=== PATIENT | female | born 1975 | race Native Hawaiian/Other Pacific Islander ===

== ENCOUNTER 2018-07-27 09:46 | Outpatient (CLI) | payer OTHER | END 2018-07-27 20:50 | disposition home or self-care (01) | LOC: MAMMO 09:46 | DX: Z12.31 Encounter for screening mammogram for malignant neoplasm of breast (principal) ==

== ENCOUNTER 2018-08-03 13:06 | Outpatient (CLI) | payer OTHER | END 2018-08-03 19:47 | disposition home or self-care (01) | LOC: MAMMO 13:06 | DX: R92.2 Inconclusive mammogram (principal) ==